=== PATIENT | female | born 1995 | race Two or more races ===

== ENCOUNTER 2025-07-20 20:09 | Emergency (ER) | payer BC ==
[~2025-07-20] VITALS: Ht 170.2 cm; Wt 66.7 kg
[2025-07-20 20:50] VITALS: BP 111/64
[2025-07-20 22:08] LABS: PLATELET COUNT (AUTO) 248 K/uL (179-408); RED BLOOD CELL COUNT(AUTO) 4.35 MIL/uL (3.63-4.92); RED CELL DISTRIBUTION WIDTH 14.0 % (12.3-17.7); WHITE BLOOD COUNT (AUTO) 9.9 K/uL (3.8-11.8)
[2025-07-20 22:16] LABS: CREATININE 0.7 mg/dL (0.6-1.3); SODIUM SERUM 138.0 mmol/L (136-145); UREA NITROGEN, BLOOD 9.0 mg/dL (7-18)
[2025-07-20 22:22] LABS: ASPARTATE AMINOTRANSFERASE 7.0 U/L (15-37); TOTAL PROTEIN, SERUM 8.0 g/dL (6.4-8.2)
[2025-07-20 22:31] LABS: PREGNANCY TEST SERUM QUAN 239.0 miul/L (0-6)
[2025-07-20 23:19] VITALS: BP 115/70; O2SAT 100
== END 2025-07-20 23:17 | disposition home or self-care (01) ==
LOC: ER 20:12
DX: O20.9 Hemorrhage in early pregnancy, unspecified (principal); N93.8 Other specified abnormal uterine and vaginal bleeding; R10.2 Pelvic and perineal pain; Z3A.01 Less than 8 weeks gestation of pregnancy; Z87.440 Personal history of urinary (tract) infections
CPT/HCPCS: 36415; 76856; 85025; 85730; 86850; 86900; 86901; A4606; A4663